=== PATIENT | female | born 1985 | race Caucasian/White ===

== ENCOUNTER → 2020-08-27 10:41 | Outpatient (BNVA) | payer BC, SELFPAY | PROVIDERS: Visit Provider Nurse Practitioner Women's Health | DX: Z01.419 Encounter for gynecological examination (general) (routine) without abnormal findings (principal) | CPT/HCPCS: 88175 ==

== ENCOUNTER → 2020-09-07 13:52 | Outpatient (BNVA) | payer BC, SELFPAY | PROVIDERS: Visit Provider Obstetrics & Gynecology | DX: Z01.818 Encounter for other preprocedural examination (principal); R87.610 Atypical squamous cells of undetermined significance on cytologic smear of cervix (ASC-US); R87.810 Cervical high risk human papillomavirus (HPV) DNA test positive | CPT/HCPCS: 81025; 88305 ==

== ENCOUNTER → 2020-10-07 08:38 | Outpatient (BNVA) | payer BC, SELFPAY | PROVIDERS: Visit Provider Obstetrics & Gynecology | DX: Z01.818 Encounter for other preprocedural examination (principal); Z20.822 Contact with and (suspected) exposure to COVID-19 | CPT/HCPCS: 87635 ==

== ENCOUNTER 2020-10-13 07:43 | Day surgery (SDC) | payer BC, SELFPAY ==
[2020-10-07 09:08] VITALS: BMI 36.0
[2020-10-07 09:38] LABS: Basophils # 0.1 10^3/uL (0.0-0.1); Basophils % 0.9 %; Eosinophils # 0.1 10^3/uL (0.0-0.8); Eosinophils % 1.6 %; Hematocrit 44.4 % (37.0-47.0); Hemoglobin 15.1 g/dL (11.5-15.3); Lymphocytes # 1.8 10^3/uL (0.8-4.8); Lymphocytes % 26.6 %; Mean Corpuscular Hemoglobin 28.7 pg (28.0-34.0); Mean Corpuscular Volume 84.4 fL (81-99); Mean Platelet Volume 9.5 fL (7.4-10.4); Monocytes # 0.6 10^3/uL (0.2-0.9); Monocytes % 8.8 %; Neutrophils # 4.17 10^3/uL (1.8-7.7); Neutrophils % 61.8 %; Nucleated Red Blood Cells % 0 %; Platelet Count 283 10^3/cmm (130-400); Red Blood Count 5.26 10^6/uL (4.1-5.3); Red Cell Distribution Width 12.8 % (12.1-15.1); White Blood Count 6.7 10^3/uL (4.0-10.0)
--- NOTE | 2020-10-07 09:46 | ANES.PREANE2 ---
Pre-Anesthetic Assessment Pre-Anesthetic Assessment: Height/Weight: Height 1.63 m Weight 95.254 kg Preop Diagnosis: desires permanent sterilization Proposed Procedure: Operation Date: 10/13/20 09:20 Proposed Procedures p Laparoscopic bilateral salpingectomy (38666, 25996) z30.2(Bilateral) - Rose Wesley MD s Hysteroscopic IUD Removal(Not Applicable) - Rose Wesley MD Was Beta Ciro taken within 24 hours: N/A Was Clonidine taken within 24 hours: N/A Social: Social History: No alcohol and No tobacco Exam: Pre-Anes Outpt Exam: alert, oriented x 3, clear to auscultation bilaterally and regular rate & rhythm Airway: Submandibular: WNL Cervical ROM: WNL MP: 2 Dentition: Full History/ROS: No significant history except as noted Metabolic: Metabolic: Morbid obesity Anesthetic Plan: ASA status: 2 Anesthesia: General Risk of > 500 ml blood loss (7ml/kg in children): No PFSH Anesthesia PFSH: Medical History No pertinent past medical history neghx: htn,dm,thyroid,dvt/pe PCP: None Surgical History No pertinent past surgical history Family History Grandmother Breast cancer Paternal--dx age unknown Diabetes Paternal Heart disease Paternal Thyroid disease Maternal Grandfather Diabetes Paternal Heart disease Paternal Mother Thyroid disease Denies family history of Colon cancer Ovarian cancer Hypercholesteremia Hypertension Uterine cancer Stroke Social History Smoking and tobacco status: never smoked Alcohol intake: current Alcohol intake frequency: holidays/special occasions only Female Reproductive History: Date of last menstrual period: 09/28/20 Data Anesthesia CBC & Chem 7: 10/07/20 09:33 10/07/20 09:33 Other Labs: Laboratory Results - last 48 hr 10/07/20 09:33 WBC 6.7 RBC 5.26 Hgb 15.1 Hct 44.4 MCV 84.4 MCH 28.7 MCHC 34.0 RDW 12.8 Plt Count 283 MPV 9.5 Neut % (Auto) 61.8 Lymph % (Auto) 26.6 [place] % (Auto) 8.8 Eos % (Auto) 1.6 Baso % (Auto) 0.9 Neut # (Auto) 4.17 Lymph # (Auto) 1.8 [place] # (Auto) 0.6 Eos # (Auto) 0.1 Baso # (Auto) 0.1 Nucleated RBC % (auto) 0 Nucleated RBCs # 0.0 Cardiac Studies: No Data to Display
[2020-10-07 09:58] LABS: Anion Gap 11.2 (5-19); Blood Urea Nitrogen 14 mg/dL (6-20); Calcium 8.6 mg/dL (8.5-10.5); Carbon Dioxide 29 mmol/L (22-29); Chloride 100 mmol/L (98-107); Glomerular Filtration Rate 96.4 mL/min (90-130); Glucose 87 mg/dL (65-115); Osmolality Calculated 282 mOsm/kg (285-295); Potassium 4.2 mmol/L (3.5-5.1); Sodium 136 mmol/L (136-145)
[2020-10-13 07:55] VITALS: BP 139/87; PULSE 70; RESP 17; TEMP 36.8; O2SAT 98
--- NOTE | 2020-10-13 08:00 | W.PM.OPSUD ---
Surgery/Procedure H&P Update DATE OF PROCEDURE: October 13, 2020 DATE H&P PERFORMED: 10/07/20 H&P UPDATE INFORMATION: I have reviewed H&P completed within last 30 days, I have examined patient prior to procedure and No changes to prior documentation CHANGES TO PREVIOUS DOCUMENTATION: I have spoken with the patient and her desire is to have a tubal ligation even if she has to have an open procedure. I plan to proceed with laparoscopic salpingectomy and IUD removal, however, if the procedure cannot be performed laparoscopically, I plan to remove the fallopian tubes via mini lap. The patient agrees with the plan and this conversation was witnessed by nursing. PREOP DIAGNOSIS: desires permanent sterilization PLANNED PROCEDURE: Operation Date: 10/13/20 09:20 Proposed Procedures p Laparoscopic bilateral salpingectomy (33883, 97968) z30.2(Bilateral) - Rose Wesley MD s Hysteroscopic IUD Removal(Not Applicable) - Rose Wesley MD
[2020-10-13] MEDS: CELEcoxib 200 mg Capsule 400 MG PO (08:27)
[2020-10-13] MEDS: gabapentin 300 mg Capsule PO (08:27)
[2020-10-13] MEDS: acetaminophen 1,000 MG/100 ML PIGGYBACK 400 MG IV (08:29)
[2020-10-13] MEDS: ketorolac 30 mg/mL INJ IVP (08:29)
[2020-10-13] MEDS: sodium chloride 0.9% 1,000 ML 30 ML IV (08:30)
--- NOTE | 2020-10-13 08:51 | P.ANESUD_ITS ---
Pre-Anesthetic Update Pre-Anesthetic Assessment: Date of Surgery/Procedure: 10/13/20 Preop Ashlie gnosis: desires permanent sterilization Proposed Procedure: Operation Date: 10/13/20 09:20 Proposed Procedures p Laparoscopic bilateral salpingectomy (03991, 55667) z30.2(Bilateral) - Rose Welsey MD s Hysteroscopic IUD Removal(Not Applicable) - Rose Wesley MD Any changes to Pre-Anesthetic Assessment?: No Changes from Pre-Anesthetic Assessment: none Last Intake: Intake Last Liquid Date 10/12/20 Last Liquid Time 21:00 Last Solid Date 10/12/20 Last Solid Time 21:00 Vitals: Temperature 98.2 F 10/13/20 07:55 Temperature Source Temporal Artery S can 10/13/20 07:55 Pulse Rate 70 10/13/20 07:55 Respiratory Rate 17 10/13/20 07:55 Blood Pressure 139/87 10/13/20 07:55 Blood Pressure [place] n 104 10/13/20 07:55 Pulse Oximetry 98 10/13/20 07:55 Oxygen Delivery Me thod 10/13/20 07:57 Exam: Pre-Anes Outpt Exam: alert, oriented x 3, clear to auscultation bilaterally and regular rate & rhythm Cardiac Studies: No Data to Display
[2020-10-13 11:11] LABS: OR HCG Qualitative Urine Negative (Negative)
--- NOTE | 2020-10-13 12:51 | PM.OP ---
Operative Report Date of procedure: October 13, 2020 Pre-op Diagnosis: desires permanent sterilization Post-op diagnosis: same Procedure Done: laparoscopic bilateral salpingectomy, removal of IUD Specimens removed/disposition: bilateral segments of fallopian tubes Surgeon: Rose Wesley Anesthesia: General Estimated blood loss (mL): 5 IV fluids (mL): 1,000 Urine output (mL): 100 Complications: none Findings: normal appearing, uterus, tubes and ovaries Condition: stable Disposition: PACU Procedure: The patient was taken to the operating room where general anesthesia was administered and found to be adequate. She was prepped and draped in the normal sterile fashion in the dorsal lithotomy position in [facility]. A weighted speculum was placed into the vagina and the anterior lip of the cervix grasped with a single-tooth tenaculum. The cervix was dilated to 10 swedish and using a ringed forceps, the Kyleena IUD was removed. A ZUMI uterine manipulator was Then placed. A Kapoor catheter was placed. The weighted speculum was removed as well as the tenaculum. Attention was turned to the abdomen after the gloves were changed. A 5 mm infraumbilical incision was made and carried down to the underlying layer of fascia. Using the 5 mm trocar and the scope the trocar was placed under direct visualization. The pelvis was visualized and found to be normal. 2 additional 5 mm ports were placed. One on the right and 1 on the left lower abdomen. These were placed under direct visualization. The uterus was elevated out of the pelvis and the entire pelvis visualized. The uterus appeared to be normal sized. The right adnexa appeared to be normal. The left adnexa appeared to be normal. The right adnexa was elevated and using the cauterizer sealer, the fallopian tube was cauterized and cut and removed. Attention was then turned to the left side where similarly, the adnexa was elevated and the fallopian tube cauterized and cut and removed. There was a paratubal cyst on the left fallopian tube which was desufflated prior to removal through the port. Bilateral tubal ligation was performed. Pictures were taken pre and post procedure. The trochars were removed under direct visualization and the abdomen desufflated. The uterine manipulator was removed as well as the Kapoor catheter. Incisions were closed using 3-0 Vicryl and skin glue. The patient tolerated the procedure well. Sponge lap and needle counts were correct x3. Taken to the recovery room in stable condition.
[2020-10-13 13:13] VITALS: BP 112/81; PULSE 93; RESP 12; TEMP 36.3; O2SAT 100
--- NOTE | 2020-10-13 13:14 | PM.DCS ---
Discharge Providers Date of Discharge: October 13, 2020 Attending Provider at Discharge: Rose Wesley MD Diagnoses at Discharge Discharge Diagnosis (1) Postoperative state: Status: Acute Reason for Visit Reason for Visit: Laparoscopic bilateral salpingectomy, removal of I Hospital Course Hospital Course The patient was admitted for surgery. She did well postoperatively and was ready for discharge. Physical Exam Urinary Catheter Management^: Kapoor: Cath Placed During This Visit: yes Urinary Catheter Date of Insertion: 10/13/20 Urinary Catheter Time of Insertion: 12:05 Discharge Data Data Completed and Pending: Pending at discharge Category Date Time Status Pathology: Surgic al [PTH] Routine Pth 10/13/20 12:35 Ordered Labs from last 24 hours 10/13/20 11:09 Urine HCG, Qual Negative Vitals: Last Vital Signs Temp 98.2 F 10/13/20 07:55 Pulse 70 10/13/20 07:55 Resp 17 10/13/20 07:55 BP 139/87 10/13/20 07:55 Pulse Ox 98 10/13/20 07:55 Discharge Plan Discharge Patient Disposition: Home Condition: Stable Prescriptions: New hydrocodone-acetaminophen 5-325 mg tablet 1 tab PO Q4H PRN (Reason: pain) Qty: 20 RF: 0 Continued sumatriptan succinate 100 mg tablet 100 mg PO Q2H PRN (Reason: Pain) RF: 0 Discharge Orders: Discharge Order (Routine); Ordered 10/13/20 Ordered By: Rose Wesley Discharge Attestations Time Spent in Discharge Care*: less than 30 min Quality Metrics Clinical Quality Measures During this hospital stay, did patient experience: None Coding Level of Care Code Acute g [facility] note Diagnoses Postoperative state Z98.890
--- NOTE | 2020-10-13 13:18 | P.PCN_ITS ---
PACU note PACU note: VSS, Good respiratory effort, report to [employer] Post-Anesthesia Exam: awake
--- NOTE | 2020-10-13 13:18 | PM.PACU ---
PACU note PACU note: VSS, Good respiratory effort, report to BAG MENDER Post-Anesthesia Exam: awake
[2020-10-13 13:20] VITALS: BP 131/69; PULSE 70; RESP 20; O2SAT 100
[2020-10-13 13:25] VITALS: BP 122/65; PULSE 68; RESP 17; O2SAT 100
[2020-10-13 13:30] VITALS: BP 111/63; PULSE 56; RESP 14; TEMP 36.4; O2SAT 99
[2020-10-13 13:38] VITALS: BP 111/83; PULSE 71; RESP 18; TEMP 36.4; O2SAT 99
--- NOTE | 2020-10-13 17:10 | ANE.PACU2 ---
Inpatient post-anesthesia follow up: Airway intact: Yes Vital signs: Temperature 97.6 F Pulse Rate 71 Respiratory Rate 18 Blood Pressure 111/83 Pulse Oximetry 99 Oxygen Delivery Me thod Room Air Oxygen Flow Rate Fraction of Inspir ed Oxygen Hydration adequate: Yes Nausea and vomiting: No Pain level: 2 Mental status: Baseline
== END 2020-10-13 14:22 | disposition home or self-care (01) ==
PROVIDERS: Anesthesiology; Visit Provider Obstetrics & Gynecology
PROC: (CPT 58661; principal; 2020-10-13 09:10)
DX: Z30.2 Encounter for sterilization (principal); Z30.432 Encounter for removal of intrauterine contraceptive device; E66.01 Morbid (severe) obesity due to excess calories; Z68.36 Body mass index [BMI] 36.0-36.9, adult
CPT/HCPCS: 58301; 58661; 36415; 80048; 84703; 85025; 88302; 96365; J0690; J1100; J1885; J2405; J2704; J2710; J3010; J3490; J7030

== ENCOUNTER → 2021-03-19 08:25 | Outpatient (BNVA) | payer BC, SELFPAY | PROVIDERS: Visit Provider Obstetrics & Gynecology | DX: Z12.4 Encounter for screening for malignant neoplasm of cervix (principal); Z87.42 Personal history of other diseases of the female genital tract | CPT/HCPCS: 87624 ==

== ENCOUNTER → 2021-11-24 12:40 | Outpatient (BNVA) | payer BC, SELFPAY | PROVIDERS: Visit Provider Obstetrics & Gynecology | DX: Z12.4 Encounter for screening for malignant neoplasm of cervix (principal) | CPT/HCPCS: 87624 ==

== ENCOUNTER → 2022-01-12 13:54 | Outpatient (BNVA) | payer BC, SELFPAY | PROVIDERS: Visit Provider Obstetrics & Gynecology | DX: R87.619 Unspecified abnormal cytological findings in specimens from cervix uteri (principal) | CPT/HCPCS: 88305 ==

== ENCOUNTER → 2022-12-02 16:00 | Outpatient (BNVA) | payer BC, SELFPAY | PROVIDERS: Visit Provider Obstetrics & Gynecology | DX: Z01.419 Encounter for gynecological examination (general) (routine) without abnormal findings (principal); N92.1 Excessive and frequent menstruation with irregular cycle | CPT/HCPCS: 84443; 87624 ==

== ENCOUNTER → 2022-12-16 12:58 | Outpatient (BNVA) | payer BC, SELFPAY | PROVIDERS: Visit Provider Obstetrics & Gynecology | DX: Z01.818 Encounter for other preprocedural examination (principal) | CPT/HCPCS: 81025; 88305 ==

== ENCOUNTER → 2023-12-18 11:00 | Outpatient (BNVA) | payer BC, SELFPAY | PROVIDERS: Visit Provider Nurse Practitioner Women's Health | DX: Z01.419 Encounter for gynecological examination (general) (routine) without abnormal findings (principal); R87.612 Low grade squamous intraepithelial lesion on cytologic smear of cervix (LGSIL) | CPT/HCPCS: 82306; 82465; 83718; 83721; 84439; 84443; 84478; 84481; 85025; 87624 ==

== ENCOUNTER → 2024-01-02 15:25 | Outpatient (BNVA) | payer BC, SELFPAY | PROVIDERS: Visit Provider Nurse Practitioner Women's Health | DX: N93.9 Abnormal uterine and vaginal bleeding, unspecified (principal) | CPT/HCPCS: 76830 ==

== ENCOUNTER 2024-02-01 07:54 | Day surgery (SDC) | payer BC, SELFPAY ==
[2024-02-01] VITALS (15 sets, daily range): BP systolic 89–159; BP diastolic 66–103; PULSE 53–98; RESP 14–19; TEMP 36.2–36.6; O2SAT 95–100
--- NOTE | 2024-02-01 04:08 | W.PM.OPSFHP ---
Same Day Surgery H&P Indication for Procedure/HPI DATE OF PROCEDURE: February 01, 2024 CHIEF COMPLAINT/INDICATIONFOR SURGICAL PROCEDURE: heavy menstrual bleeding abnormal pap PREOP DIAGNOSIS: heavy menstrual bleeding; abnormal pap PLANNED PROCEDURE: Operation Date: 02/01/24 09:20 Proposed Procedures p Hysteroscopy Hysteroscopy w/ Endometrial Sampling 37364, 14528, N94.6 45483(Not Applicable) - Beni Casas MD s Cervical Conization(Not Applicable) - Beni Casas MD 38 y.o. h/o BTL periods very heavy and painful also with abnormal pap Medications/Allergies* Allergies/Adverse Reactions Allergy/AdvReac Type Severity Reaction Status Date / Time No Known Allergies Allergy Verified 01/31/24 11:22 Pertinent History/Comorbid Conditions* Medical History (Updated 01/26/24 @ 01:37 by Beni Casas MD) History of abnormal cervical Pap smear No pertinent past medical history neghx: htn,dm,thyroid,dvt/pe PCP: None Surgical History (Updated 12/05/22 @ 11:03 by Rose Wesley MD) No pertinent past surgical history Family History (Updated 08/27/20 @ 10:14 by Marilee Ivey) Diabetes Grandmother Paternal Grandfather Paternal Heart disease Grandmother Paternal Grandfather Paternal Breast cancer Grandmother Paternal--dx age unknown Thyroid disease Grandmother Maternal Mother Denies family history of Colon cancer Ovarian cancer Hypercholesteremia Hypertension Uterine cancer Stroke Social History Smoking and tobacco/nicotine status: never used tobacco/nicotine Pertinent Exam Findings alert, oriented x 3, clear to auscultation bilaterally and regular rate & rhythm Pertinent Data Pap 12-18-23 ASCUS, + HPV Pelvic sono 01-02-24 normal-sized uterus Endometrium 1.2 cm Normal ovaries Recommendations Surgery/Procedure today Coding Level of Care Code Acute Code for Chg Fwd Time Spent (min) 20
--- NOTE | 2024-02-01 07:37 | W.PM.OPSUD ---
Surgery/Procedure H&P Update DATE OF PROCEDURE: February 01, 2024 DATE H&P PERFORMED: 02/01/24 H&P UPDATE INFORMATION: I have reviewed H&P completed within last 30 days, I have examined patient prior to procedure and No changes to prior documentation PREOP DIAGNOSIS: heavy menstrual bleeding; abnormal pap PLANNED PROCEDURE: Operation Date: 02/01/24 09:20 Proposed Procedures p Hysteroscopy Hysteroscopy w/ Endometrial Sampling 40578, 96199, N94.6 91444(Not Applicable) - Beni Casas MD s Cervical Conization(Not Applicable) - Beni Casas MD
[2024-02-01] MEDS: sodium chloride 0.9% 1,000 ML 30 ML IV (08:40)
--- NOTE | 2024-02-01 08:47 | ANES.PREANE2 ---
Pre-Anesthetic Assessment Height/Weight: Height 1.6 m Temp Pulse Resp BP Pulse Ox O2 Del Method 97.8 F 53 L 18 126/82 95 Room Air 02/01/24 08:10 02/01/24 08:10 02/01/24 08:10 02/01/24 08:10 02/01/24 08:10 02/01/24 08:10 Preop Diagnosis: menorrhagia; abnormal pap Operation Date: 02/01/24 09:20 Proposed Procedures p Hysteroscopy Hysteroscopy w/ Endometrial Sampling 71698, 78075, N94.6 95286(Not Applicable) - Beni Casas MD s Cervical Conization(Not Applicable) - Beni Casas MD Familial anesthetic complications: None Was Beta Ciro taken within 24 hours: N/A Was Clonidine taken within 24 hours: N/A Last intake: Intake Last Liquid Date 01/31/24 Last Liquid Time 19:00 Last Solid Date 01/31/24 Last Solid Time 19:00 Social No alcohol and No tobacco Exam alert, oriented x 3, clear to auscultation bilaterally and regular rate & rhythm Airway Mallampati: Class II Dentition: full Anesthetic Plan ASA status: 1 Anesthesia: General Risk of > 500 ml blood loss (7ml/kg in children): No Medications/Allergies Home Medications Medication Instructions Recorded Confirmed Last Taken Type cholecalciferol (vitamin D3) 25 25 mcg PO DAILY #30 caps 12/19/23 02/01/24 Unknown Rx mcg (1,000 unit) capsule Allergies Allergy/AdvReac Type Severity Reaction Status Date / Time No Known Allergies Allergy Verified 02/01/24 08:12 Current Medications Generic Name Dose Route Start Last Admin Trade Name Eliceoq PRN Reason Stop Dose Admin Sodium Chloride 1,000 mls @ 30 mls/hr 02/01/24 08:00 02/01/24 08:40 Sodium Chloride 0.9% IV 02/02/24 07:59 30 mls/hr .Q24H GIL Administration PFSH Anesthesia Medical History History of abnormal cervical Pap smear No pertinent past medical history neghx: htn,dm,thyroid,dvt/pe PCP: None Surgical History No pertinent past surgical history Family History Grandmother Breast cancer Paternal--dx age unknown Diabetes Paternal Heart disease Paternal Thyroid disease Maternal Grandfather Diabetes Paternal Heart disease Paternal Mother Thyroid disease Denies family history of Colon cancer Ovarian cancer Hypercholesteremia Hypertension Uterine cancer Stroke Social History Smoking and tobacco/nicotine status: never used tobacco/nicotine Data Anesthesia Cardiac Studies: No Data to Display
[2024-02-01] MEDS: vasopressin 20 unit/mL INJ INJECTION (09:42)
--- NOTE | 2024-02-01 10:05 | PM.OP ---
Operative Report Date of procedure: February 01, 2024 Pre-op diagnosis: Abnormal uterine bleeding Abnormal pap Post-op diagnosis: same Post-op findings: Normal endometrial cavity No endometrial polyps or fibroids Minimal endometrial tissue Adequate global endometrial ablation following procedure Intact endometrial cavity following ablation Procedure done: Hysteroscopy Curettage of uterus Endometrial ablation with Novasure device Electrosurgical loop excision of the cervix Implants: none Specimens removed/disposition: endometrial curettings cervical tissue Surgeon: Beni Casas MD Anesthesia: MAC Estimated blood loss (mL): 5 Complications: none Findings: Normal endometrial cavity No endometrial polyps or fibroids Minimal endometrial tissue Adequate global endometrial ablation following procedure Intact endometrial cavity following ablation Brief History: 38 y.o. with menorrhagia and abnormal pap Procedure: Informed consent was obtained. The patient was taken to the OR and placed on the table. General endotracheal anesthesia was induced. The patient was then placed in dorsolithotomy position. The perineum were then prepped and draped in the usual fashion. A speculum was placed in the vagina. The anterior lip of the cervix was grasped with a sharp-toothed tenaculum. The uterus was sounded to 8 cm. The cervix was serially dilated with Hegar dilators. . A hysteroscope was placed into the endometrial cavity. The endometrial cavity was seen to be normal. There were no polyps or fibroids. There was minimal endometrial tissue. The hysteroscope was then removed. Endometrial curettage was done with a sharp curette. Endometrial tissue was sent to pathology. The Novasure device was then primed and inserted into the endometrial cavity. The cervical occlusion sleeve was advanced. Cavity integrity test was done. The device was activated for 120 seconds. The Novasure device was then removed. Repeat hysteroscopy showed an intact endometrial cavity with adequate global endometrial ablation. All instruments were then removed from the uterus The cervix was then infiltrated at the cervicovaginal junction with 20 U of vasopressin to decrease bleeding. Electrosurgical loop excision of the cervix was done to a depth of approximately 5 mm. No bleeding was seen. Excellent hemostasis was noted. All instruments were then removed. The patient was placed supine, awakened, and taken to the recovery room. Postop condition: stable EBL: 5 cc Sponge and instruments counts were normal x 2 Complications: none
[2024-02-01] MEDS: meperidine 50 mg/mL INJ 12.5 MG IVP (10:26)
[2024-02-01] MEDS: HYDROmorphone 1 mg/mL INJ 1 mL 0.5 MG IVP (10:48)
[2024-02-01 11:46] LABS: OR HCG Qualitative Urine Negative (Negative)
--- NOTE | 2024-02-01 11:48 | SUR.PHASEII ---
Pt c/o abdominal cramps, rates pain /. States it is the same pain as when she menstruates, nothing helps , declined my offer for pain medication prior to discharge.
--- NOTE | 2024-02-01 11:50 | ANE.PACU2 ---
Inpatient post-anesthesia follow up: Airway intact: Yes Vital signs: Temperature 97.6 F Pulse Rate 64 Respiratory Rate 16 Blood Pressure 125/76 Pulse Oximetry 100 Oxygen Delivery Me thod Room Air Oxygen Flow Rate 6 Fraction of Inspir ed Oxygen Hydration adequate: Yes Nausea and vomiting: No Pain level: 1 Mental status: Baseline
== END 2024-02-01 11:50 | disposition home or self-care (01) ==
PROVIDERS: Anesthesiology; Visit Provider Obstetrics & Gynecology
PROC: 0UJD8ZZ Inspection of Uterus and Cervix, Via Natural or Artificial Opening Endoscopic (ICD-10-PCS; CPT 58555; principal; 2024-02-01 09:10)
PROC: 0UBC7ZZ Excision of Cervix, Via Natural or Artificial Opening (ICD-10-PCS; CPT 57520; 2024-02-01 09:10)
PROC: (CPT 58999; 2024-02-01 09:10)
DX: N87.1 Moderate cervical dysplasia (principal)
CPT/HCPCS: 57522; 58558; 58999; 81025; 88305; J1100; J1170; J2175; J2250; J2405; J2704; J3010; J3490; J7030

== ENCOUNTER → 2024-08-16 16:21 | Outpatient (BNVA) | payer BC, SELFPAY | PROVIDERS: Visit Provider Obstetrics & Gynecology | DX: Z01.419 Encounter for gynecological examination (general) (routine) without abnormal findings (principal) | CPT/HCPCS: 87624 ==

== ENCOUNTER 2025-02-07 20:02 | Emergency (ER) | payer BC, SELFPAY ==
[2025-02-07 20:11] VITALS: BP 124/83; PULSE 70; RESP 20; TEMP 36.9; O2SAT 98; BMI 36.8
--- NOTE | 2025-02-07 20:27 | XRR_ITS ---
PROCEDURE INFORMATION: Exam: XR Chest Exam date and time: 02/07/2025 8:41 PM Age: 39 years old Clinical indication: Other: Syncope; EMS arrival for syncopal episode TECHNIQUE: Imaging protocol: Radiologic exam of the chest. Views: 1 view. COMPARISON: No relevant prior studies available. FINDINGS: Lungs: Unremarkable. No consolidation. Pleural spaces: Unremarkable. No pleural effusion. No pneumothorax. Heart/Mediastinum: Unremarkable. No cardiomegaly. Bones/joints: Unremarkable. XR/XR chest 1V portable [id number] IMPRESSION: No acute findings.
--- NOTE | 2025-02-07 20:27 | CTR_ITS ---
PROCEDURE INFORMATION: Exam: CT Head Without Contrast Exam date and time: 02/07/2025 8:40 PM Age: 39 years old Clinical indication: Syncope and collapse; EMS arrival for syncopal episode TECHNIQUE: Imaging protocol: Computed tomography of the head without contrast. Radiation optimization: All CT scans at this facility use at least one of these dose optimization techniques: automated exposure control; mA and/or kV adjustment per patient size (includes targeted exams where dose is matched to clinical indication); or iterative reconstruction. COMPARISON: No relevant prior studies available. RADIATION DOSE METRICS: Total DLP (mGy-cm): 964.55 FINDINGS: Brain: Normal. No hemorrhage. Unremarkable white matter. No mass effect. Cerebral ventricles: No ventriculomegaly. Paranasal sinuses: Mild sphenoid sinus disease. Mastoid air cells: Visualized mastoid air cells are well aerated. Bones: Unremarkable. No acute fracture. Soft tissues: Unremarkable. CT/CT head wo con* [id number] IMPRESSION: No definite acute intracranial abnormality.
[2025-02-07 20:41] LABS: Hematocrit 38.5 % (36-47); Hemoglobin 13.00 g/dL (11.27-16.99); Mean Corpuscular HGB Conc 33.8 g/dL (30-55); Mean Corpuscular Hemoglobin 28.6 pg (27-33); Mean Corpuscular Volume 84.8 fl (85-98); Nucleated Red Blood Cells % 0 %; Platelet Count 255 10^3/cmm (157-399); Red Blood Count 4.54 10^6/uL (3.85-5.65); White Blood Count 10.75 10^3/uL (3.29-11.43)
--- NOTE | 2025-02-07 20:47 | W.ED.SYNCOPE ---
HPI - Syncope General: Chief Complaint: Syncope Stated Complaint: SYNCOPE Time Seen by Provider: 02/07/25 20:04 History of Present Illness: Patient is 39-year-old female without medical history reported to the emergency room after syncopal episode at [email or web address] [facility]. Patient states she felt her hand shaking and ears ringing, and then she passed out for few seconds. This was witnessed by her . She did not have loss of bladder control. She did not have any diaphoresis in the chair at the [email or web address] [facility], she had ice on her back, and EMS was called. She did is well have diaphoresis on her back when she came here. No issues with blood glucose in the past. Unaware of any additional issues. Selected Entries 02/07/25 20:11 ED Triage Comment [facility]. brought by [facility] with complaint of sync ope at [email or web address] [facility]. Pt. states th at she felt her durbin nds shaking and he r ears started rin ging before she pa ssed out. Pt. seat was wet and the c ot from ems was we t , but patient de nies loss of bladd er control. Associated symptoms: Deny chest pain, fever(s), headache(s) or nausea Related Data Home Medications ?Medication ?Instructions ?Recorded ?Confirmed No Known Home Medications 08/16/24 08/16/24 Allergies Allergy/AdvReac Type Severity Reaction Status Date / Time No Known Allergies Allergy Verified 08/16/24 09:04 Review of Systems Const: Denies: fever(s) ENMT: Denies: throat pain or mouth pain Card: Denies: chest pain Resp: Denies: dyspnea GI: Denies: nausea, vomiting, diarrhea or constipation : Reports: dysmenorrhea, irregular period, metrorrhagia and pelvic pain; Denies: dysuria, genital pruritis, vaginal bleeding, vaginal discharge or other (menstrual cramping) Musc: Denies: neck pain or back pain Skin/Breast: Denies: breast tenderness Neuro: Denies: headache(s) Psych: Denies: anxiety or depression Endo: Denies: polyuria or polydipsia [facility] ED PFSH: Medical History (Updated 02/07/25 @ 22:25 by MARY Harris) History of abnormal cervical Pap smear No pertinent past medical history neghx: htn,dm,thyroid,dvt/pe PCP: None Surgical History No pertinent past surgical history Family History Grandmother Breast cancer Paternal--dx age unknown Diabetes Paternal Heart disease Paternal Thyroid disease Maternal Grandfather Diabetes Paternal Heart disease Paternal Mother Thyroid disease Denies family history of Colon cancer Ovarian cancer Hypercholesteremia Hypertension Uterine cancer Stroke Social History Smoking and tobacco/nicotine status: never used tobacco/nicotine Physical Exam Const: COMMON NORMALS: no acute distress, average body habitus and patient oriented x3 HENMT: COMMON NORMALS: normocephalic and atraumatic HEAD & SCALP: normocephalic and atraumatic Neck/C-Spine: COMMON NORMALS: full ROM, no lymphadenopathy, supple and no meningeal signs Lymph: LYMPHATIC: no lymphadenopathy noted Chest: COMMONS NORMALS: normal inspection of the chest and normal palpation of entire chest wall Resp: COMMON NORMALS: normal respiratory effort, No retractions and clear to auscultation bilaterally AUSCULTATION: clear to auscultation bilaterally Cardio: COMMON NORMALS: regular rate and regular rhythm RATE: regular rate RHYTHM: regular rhythm GI: COMMON NORMALS: Normal to inspection, nondistended, normoactive bowel sounds present, Soft to palpation, non-tender and No hepatosplenomegaly present PALPATION: Yes Soft to palpation and Yes No hepatosplenomegaly present : COMMON NORMALS: Yes no CVA tenderness BLADDER/KIDNEY EXAM: Yes no CVA tenderness Back/Pelvis: COMMON NORMALS: no CVA tenderness Extremity: COMMON NORMALS: normal to inspection, full ROM and capillary refill normal Neuro: COMMON NORMALS: patient oriented x3, CN's II-XII intact bilaterally and moves all extremities MENINGEAL SIGNS: Yes no meningeal signs Psych: COMMON NORMALS: mental status grossly normal, Normal thought process present and cooperative THOUGHT PROCESS: Normal thought process present Skin: COMMON NORMALS: no rashes or lesions noted and no wounds GENERAL SKIN EXAM: no rashes or lesions noted Course Vital Signs: Vital signs: Vital Signs Temperature 98.4 F 02/07/25 20:11 Pulse Rate 78 02/07/25 22:37 Respiratory Rate 14 02/07/25 22:37 Blood Pressure 116/79 02/07/25 22:37 Pulse Oximetry 98 02/07/25 22:37 Oxygen Delivery Me thod Room Air 02/07/25 21:30 MDM - Syncope Medical Decision Making Patient is a 39-year-old female that presented to the ED today after full syncope. Workup was essentially negative. She is going to follow-up with cardiology for event monitoring. Medical Records I reviewed the patient's medical records. Lab Data I reviewed the patient's lab results. 02/07/25 20:10 02/07/25 20:10 Radiology Impressions Chest X-Ray 02/07/25 20:27 IMPRESSION: No acute findings. Head CT 02/07/25 20:27 IMPRESSION: No definite acute intracranial abnormality. Laboratory Results WBC 10.75 10^3/uL (3.29-11.43) 02/07/25 20:10 RBC 4.54 10^6/uL (3.85-5.65) 02/07/25 20:10 Hgb 13.00 g/dL (11.27-16.99) 02/07/25 20:10 Hct 38.5 % (36-47) 02/07/25 20:10 MCV 84.8 fl (85-98) L 02/07/25 20:10 MCH 28.6 pg (27-33) 02/07/25 20:10 MCHC 33.8 g/dL (30-55) 02/07/25 20:10 RDW 12.4 % (12.1-15.1) 02/07/25 20:10 Plt Count 255 10^3/cmm (157-399) 02/07/25 20:10 MPV 9.7 fL (7.4-10.4) 02/07/25 20:10 Neut % (Auto) 64.8 % 02/07/25 20:10 Lymph % (Auto) 24.1 % 02/07/25 20:10 [place] % (Auto) 8.9 % 02/07/25 20:10 Eos % (Auto) 1.6 % 02/07/25 20:10 Baso % (Auto) 0.4 % 02/07/25 20:10 Neut # (Auto) 6.97 10^3/uL (1.8-7.7) 02/07/25 20:10 Lymph # (Auto) 2.6 10^3/uL (0.8-4.8) 02/07/25 20:10 [place] # (Auto) 1.0 10^3/uL (0.2-0.9) H 02/07/25 20:10 Eos # (Auto) 0.2 10^3/uL (0.0-0.8) 02/07/25 20:10 Baso # (Auto) 0.0 10^3/uL (0.0-0.1) 02/07/25 20:10 Nucleated RBC % (auto) 0 % 02/07/25 20:10 Nucleated RBCs # 0.0 /100WBC 02/07/25 20:10 D-Dimer <= 0.27 ug/mLFEU (0-0.59) 02/07/25 20:10 Sodium 138 mmol/L (136-145) 02/07/25 20:10 Potassium 3.6 mmol/L (3.5-5.1) 02/07/25 20:10 Chloride 102 mmol/L (98-107) 02/07/25 20:10 Carbon Dioxide 22 mmol/L (22-29) 02/07/25 20:10 Anion Gap 17.6 (5-19) 02/07/25 20:10 BUN 10 mg/dL (6-20) 02/07/25 20:10 Creatinine 0.9 mg/dL (0.5-0.9) 02/07/25 20:10 GFR Calculation 70.5 mL/min (90-130) L 02/07/25 20:10 Glucose 76 mg/dL (65-115) 02/07/25 20:10 POC Glucose 106 mg/dL (70-110) 02/07/25 21:46 Calculated Osmolality 284 mOsm/kg (285-295) L 02/07/25 20:10 Calcium 9.7 mg/dL (8.5-10.5) 02/07/25 20:10 Magnesium 2.1 mg/dL (1.7-2.3) 02/07/25 20:10 Total Bilirubin 0.3 mg/dL (0.15-1.2) 02/07/25 20:10 AST 20 U/L (0-32) 02/07/25 20:10 ALT 12 U/L (0-33) 02/07/25 20:10 Alkaline Phosphatase 59 U/L (35-105) 02/07/25 20:10 Creatine Kinase 80 U/L (26-192) 02/07/25 20:10 Total Protein 7.4 g/dL (6.6-8.7) 02/07/25 20:10 Albumin 3.9 g/dL (3.5-5.2) 02/07/25 20:10 Globulin 3.5 g/dL (1.3-4.6) 02/07/25 20:10 TSH 6.93 uIU/mL (0.27-4.20) H 02/07/25 20:10 HCG, Qual Negative (Negative) 02/07/25 20:10 Urine Color Yellow (Yellow) 02/07/25 21:08 Urine Appearance Clear (CLEAR) 02/07/25 21:08 Urine pH 8.0 (5-7) A 02/07/25 21:08 Ur Specific [place] 1.021 (1.005-1.030) 02/07/25 21:08 Urine Protein 2+ (Negative) A 02/07/25 21:08 Urine Glucose (UA) Negative (Normal) 02/07/25 21:08 Urine Ketones Trace (Negative) 02/07/25 21:08 Urine Blood Negative (Negative) 02/07/25 21:08 Urine Nitrate Negative (Negative) 02/07/25 21:08 Urine Bilirubin Negative (Negative) 02/07/25 21:08 Urine Urobilinogen 1.0 mg/dL (Negative) 02/07/25 21:08 Ur Leukocyte Esterase Trace (Negative) A 02/07/25 21:08 Urine RBC 0-2 /hpf (0-2) 02/07/25 21:08 Urine WBC 0-5 /hpf (0-5) 02/07/25 21:08 Ur Squamous Epith Cells 0-5 /hpf (0-5) 02/07/25 21:08 Amorphous Sediment Not Reportable 02/07/25 21:08 Urine Bacteria None seen /hpf (NONE) 02/07/25 21:08 Hyaline Casts 5.77 /lpf 02/07/25 21:08 Ethyl Alcohol < 10 mg/dL (0-10) 02/07/25 20:10 All radiology interpretation(s) finalized by discharge Discharge Plan Discharge Patient Disposition: Home Clinical Impression: Vasovagal syncope Condition: Stable Prescriptions: No Action No Known Home Medications Discharge Orders: Discharge ED (Routine); Ordered 02/07/25 Ordered By: Sarah Finley Referrals: Cyndi Braun MD [Physician, Cardiology] - 1-3 days Referral Note: Event monitor only Discharge Diet: Usual diet Discharge Activity: Resume usual activity Patient Instructions: Syncope (ED), Patient Portal & Rosa Instructions Activity Restrictions/Additional Instructions: - No additional findings were noted of concern on your workup today -As discussed, there will be a referral to Dr. Braun regarding follow-up for a monitoring device at the cardiac center. - Please call on Monday to further confirm. Case management has a referral. - Do not bathe alone, swim alone. Caution on driving. - Return to ED if you have further symptoms. Stand Alone Forms: Work/School Release Print Language: Yakut Coding Level of Care Code ED Tool Keeper for Joey Cardenas
[2025-02-07 21:02] LABS: HCG, Serum Qual Negative (Negative)
[2025-02-07 21:14] LABS: Albumin Level 3.9 g/dL (3.5-5.2); Alkaline Phosphatase 59 U/L (35-105); Blood Urea Nitrogen 10 mg/dL (6-20); Calcium 9.7 mg/dL (8.5-10.5); Carbon Dioxide 22 mmol/L (22-29); Chloride 102 mmol/L (98-107); Creatinine Clr Calc Pharmacy 97.0465; Globulin 3.5 g/dL (1.3-4.6); Glucose 76 mg/dL (65-115); Magnesium 2.1 mg/dL (1.7-2.3); Osmolality Calculated 284 mOsm/kg (285-295); Sodium 138 mmol/L (136-145); Thyroid Stimulating Hormone 6.93 uIU/mL (0.27-4.20); Total Protein 7.4 g/dL (6.6-8.7)
[2025-02-07 21:15] LABS: Alcohol Level < 10 mg/dL (0-10)
[2025-02-07 21:15] LABS: Glucose Urine UA Negative (Normal); Nitrate Urine Negative (Negative); Specific Gravity, Urine 1.021 (1.005-1.030)
[2025-02-07 21:17] LABS: Alanine Aminotransferase 12 U/L (0-33); Anion Gap 17.6 (5-19); Aspartate Amino Transferase 20 U/L (0-32); Potassium 3.6 mmol/L (3.5-5.1)
[2025-02-07 21:18] LABS: Add Urine Microscopic? YES
[2025-02-07 21:22] VITALS: BP 123/82; PULSE 65; O2SAT 99
[2025-02-07 21:30] VITALS: PULSE 62; O2SAT 97
[2025-02-07 21:50] LABS: UA Slide Review UA Slide Review Perf
[2025-02-07 22:37] VITALS: BP 116/79; PULSE 78; RESP 14; O2SAT 98
--- NOTE | 2025-02-10 07:30 | DCPLANNER ---
messaged heart care for er f/u
== END 2025-02-07 22:39 | disposition home or self-care (01) ==
PROVIDERS: Emergency Provider Physician Assistant
DX: R55 Syncope and collapse (principal)
CPT/HCPCS: 36416; 70450; 71045; 80053; 80307; 81001; 82550; 82962; 83735; 84443; 84703; 85025; 85378; 96360; 99284; J7120

== ENCOUNTER → 2025-03-19 13:49 | Outpatient (BNVA) | payer BC, SELFPAY | PROVIDERS: Visit Provider Obstetrics & Gynecology | DX: R87.619 Unspecified abnormal cytological findings in specimens from cervix uteri (principal) | CPT/HCPCS: 87624 ==

== ENCOUNTER 2025-03-20 06:33 | Outpatient (CLI) | payer BC, SELFPAY ==
--- NOTE | 2025-03-20 06:45 | USCV_ITS ---
Aury Zaragoza Age: 39 Gender: F : 1985 Exam Date: 03/20/2025 06:56 Ordering Phys: Ginette Sears Technologist: ADDI Exam Location: [facility] [place] Indication: Murmur BP: 126 / 76 HR: 68 Rhythm: Sinus Technical Quality: Adequate MEASUREMENTS (Male / Female) Normal Values 2D ECHO LV Diastolic Diameter PLAX 5.4 cm 4.2 - 5.9 / 3.9 - 5.3 cm IVS Diastolic Thickness 0.7 cm 0.6 - 1.0 / 0.6 - 0.9 cm IVS Systolic Thickness 0.9 cm LVPW Diastolic Thickness 0.9 cm 0.6 - 1.0 / 0.6 - 0.9 cm LVPW Systolic Thickness 1.0 cm LVOT Diameter 2.0 cm LV Ejection Fraction 2D Teich 54.8 % LV Ejection Fraction MOD 4C 57.3 % LV Ejection Fraction MOD 2C 62.3 % LV Ejection Fraction 2C AL 63.6 % LA Diameter 2.9 cm RA Systolic Volume 4C AL 26.6 ml RA Systolic Volume 4C MOD 26.1 ml LA Sys Volume AL 43.2 cm cubed LA Sys Volume Index AL 20.1 cm cubed/m squared Aorta at Sinotubular Diameter 2.1 cm M-MODE LA Ao Ratio MM 1.4 AV Cusp Separation MM 1.7 cm DOPPLER AV Peak Velocity 189.0 cm/s LVOT Peak Velocity 110.0 cm/s AV Area Cont Eq vti 1.8 cm squared AV Area Cont Eq pk 1.8 cm squared MV Peak Velocity 151.0 cm/s MV Area PHT 3.3 cm squared Mitral E to A Ratio 0.9 TR Peak Velocity 143.0 cm/s TR Peak Gradient 8.2 mmHg TV Peak E Velocity 75.0 cm/s PV Peak Velocity 107.0 cm/s FINDINGS Left Ventricle Normal left ventricular size, systolic function and wall thickness, with no regional wall motion abnormalities. Left ventricular ejection fraction is estimated at 55 %. Grade I/IV diastolic dysfunction (abnormal relaxation filling pattern), normal to mildly elevated filling pressures. Right Ventricle Normal right ventricular size and systolic function. Right Atrium Normal right atrial size. Left Atrium Normal left atrial size. IA Septum Normal appearance of the interatrial septum. Mitral Valve Moderately thickened mitral valve. No mitral valve stenosis. Mild-moderate mitral valve regurgitation. Aortic Valve Mild aortic valve calcification. No aortic valve stenosis. Trace aortic valve regurgitation. Tricuspid Valve Normal tricuspid valve structure. No tricuspid valve stenosis or regurgitation. Normal pulmonary pressure. Pulmonic Valve Normal pulmonic valve structure. No pulmonic valve stenosis or regurgitation. Pericardium No pericardial effusion. Aorta Normal diameter of the aortic root and ascending thoracic aorta. IVC Normal IVC diameter. CONCLUSIONS Normal left ventricular size, systolic function and wall thickness with ejection fraction of _ %. Normal right ventricular size and systolic function. No significant valvular abnormalities. Moderately thickened mitral valve. No mitral valve stenosis. Mild-moderate mitral valve regurgitation. Mild aortic valve calcification. No aortic valve stenosis. Trace aortic valve regurgitation. There is no pericardial effusion. Right atrial pressure is around 5 mm of mercury. Elissa Chaudhari MD (Electronically Signed) Final Date: 25 March 2025 18:04 S
== END 2025-03-20 06:34 | disposition home or self-care (01) ==
LOC: RAD 06:34
PROVIDERS: PCP Physician Assistant; Visit Provider Physician Assistant
DX: R01.1 Cardiac murmur, unspecified (principal); I51.89 Other ill-defined heart diseases; I34.9 Nonrheumatic mitral valve disorder, unspecified; I34.0 Nonrheumatic mitral (valve) insufficiency; I35.8 Other nonrheumatic aortic valve disorders
CPT/HCPCS: 93306